=== PATIENT | female | born 1985 | race African-American/Black ===

== ENCOUNTER 2018-03-25 08:39 | Inpatient (IN) | payer OTHER ==
[2018-03-25 10:12] VITALS: BMI 31.4
--- NOTE | 2018-03-25 11:29 | HP ---
Admission [facility] Chief Complaint: PATIENT PRESENTS FOR REHAB SERVICES FOR COCAINE DEPENDENCE. Allergies/Adverse Reactions: Allergies Allergy/AdvReac Type Severity Reaction Status Date / Time milk Allergy Severe diarrhea Verified 10/31/15 14:11 diphenhydramine HCl Allergy twitching Verified 10/31/15 14:11 [From Benadryl] haloperidol [From Haldol] Allergy Verified 03/25/18 10:42 History of Present Illness: PATIENT PRESENT FOR REHAB SERVICES FOR COCAINE DEPENDENCE. [place] [facility] [place] AND REFERRED HERE FOR REHAB SERVICES. PATIENT IS POOR HISTORIAN DUE TO PMH OF SCHIZOPHRENIA. PATIENT STATES SHE SMOKES HEROIN AND DRINKS ALCOHOL OCCASIONALLY. LAST TIME SHE USED BOTH SUBSTANCES 3-4 DAYS AGO. STATES HOW MUCH SHE USES DEPENDS ON FINANCES. PATIENT ALSO SMOKES COCAINE 2 -3 BAGS DAILY. LAST TIME SHE USED WAS 2 DAYS AGO. STATES SHE HAS BEEN SMOKING COCAINE FOR ABOUT 10 YEARS. PMH INCLUDES SEIZURE DISORDER, ASTHMA AND SCHIZOPHRENIA. DENIES SI/HI AND SUICIDE ATTEMPTS. Exam Limitations: Altered Mental Status (PATIENT HAS HISTORY OF DEPRESSION. ALERT BUT POOR HISTORIAN) - Ebola screening Have you traveled outside of the country in the last 21 days: No (N) Have you had contact with anyone from an Ebola affected area: No Have you been sick,other than usual withdrawal symptoms: No Do you have a fever: No - Review of Systems Constitutional: Changes in sleep EENT: reports: No Symptoms Reported Respiratory: reports: No Symptoms reported Cardiac: reports: No Symptoms Reported GI: reports: Poor Fluid Intake : reports: No Symptoms Reported Musculoskeletal: reports: No Symptoms Reported Integumentary: reports: No Symptoms Reported Neuro: reports: Seizure Endocrine: reports: No Symptoms Reported Hematology: reports: Anemia Psychiatric: reports: Depressed, other (+SCHIZOPHRENIA) Patient History - Patient Medical History Hx Anemia: Yes (H/O) Hx Asthma: Yes Hx Chronic Obstructive Pulmonary Disease (COPD): No Hx Cancer: No Hx Cardiac Disorders: No Hx Congestive Heart Failure: No Hx Hypertension: No Hx Hypercholesterolemia: No Hx Pacemaker: No HX Cerebrovascular Accident: No Hx Seizures: Yes (last attack last 2014) Hx Dementia: No Hx Diabetes: No Hx Gastrointestinal Disorders: No Hx Liver Disease: No Hx Genitourinary Disorders: No Hx Sexually Transmitted Disorders: No Hx Renal Disease (ESRD): No Hx Thyroid Disease: Yes (NOT ON MEDS. NOT SURE IF IT IS HYPO/HYPER) Hx Human Immunodeficiency Virus (HIV): No Hx Hepatitis C: No Hx Depression: Yes Hx Suicide Attempt: No Hx Bipolar Disorder: No Hx Schizophrenia: No - Patient Surgical History Past Surgical History: Yes Hx Neurologic Surgery: No Hx Cataract Extraction: No Hx Cardiac Surgery: No Hx Lung Surgery: No Hx Breast Surgery: No Hx Breast Biopsy: No Hx Abdominal Surgery: No Hx Appendectomy: No Hx Cholecystectomy: No Hx Genitourinary Surgery: No Hx Section: No Hx Orthopedic Surgery: Yes (R HIP REPLACEMENT DURING CHILDHOOD) Hx Hysterectomy: No Other Surgical History: CLEFT PALATE REPAIR Anesthesia Reaction: No - PPD History Date: 10/29/15 Results: 0 mm PPD to be Administered?: Yes - Reproductive History Patient is a Female of Child Bearing Age (11 -55 yrs old): Yes Last Menstrual Period: 10/26/15 Patient : No - Smoking Cessation Smoking history: Current every day smoker Have you smoked in the past 12 months: Yes Aproximately how many cigarettes per day: 20 Cigars Per Day: 0 Hx Chewing Tobacco Use: No Initiated information on smoking cessation: Yes 'Breaking Loose' booklet given: 03/25/18 - Substance & Tx. History Hx Alcohol Use: Yes Hx Substance Use: Yes Substance Use Type: Alcohol, Cocaine, Heroin Hx Substance Use Treatment: Yes - Substances Abused Heroin Route: Inhalation Frequency: 1-2 times per week Amount used: 2-3 BAGS Age of first use: 31 Date of Last Use: 03/21/18 Cocaine Route: Inhalation Frequency: 1-2 times per week Amount used: 1 BAG Age of first use: 17 Date of Last Use: 03/23/18 Alcohol Route: Oral Frequency: 1-2 times per week Amount used: 3-4 BEERS Age of first use: 16 Date of Last Use: 03/23/18 Family Disease History - Family Disease History Family History: Unable to Obtain Admission Physical Exam BHS - Vital Signs Vital Signs: Vital Signs - 24 hr 03/25/18 10:10 Temperature 97.4 F L Pulse Rate 102 H Respiratory 19 Rate Blood Pressure 134/77 - Physical General Appearance: Yes: No Apparent Distress HEENTM: Yes: EOMI, Hearing grossly Normal, Normocephalic, Normal Voice, [place], Pharynx Normal Respiratory: Yes: Chest Non-Tender, Lungs Clear, Normal Breath Sounds, No Respiratory Distress, No Accessory Muscle Use Neck: Yes: Within Normal Limits Breast: Yes: Breast Exam Deferred Cardiology: Yes: Regular Rhythm, Regular Rate, S1, S2 Abdominal: Yes: Normal Bowel Sounds, Non Tender, Soft Genitourinary: Yes: Within Normal Limits Back: Yes: Normal Inspection Musculoskeletal: Yes: full range of Motion, Gait Steady Extremities: Yes: Normal Inspection, Normal Range of Motion, Non-Tender Neurological: Yes: design architect II-XII NML intact, Alert, Motor Strength 5/5, Confused ( patient goes from one topic to another and unable to focus during questioning), Depressed Affect Integumentary: Yes: Normal Color, Dry, Warm, Other (healing cigarette burn binu on right hand) Lymphatic: Yes: Within Normal Limits - Diagnostic (1) Opioid abuse Current Visit: Yes Status: Suspected (2) Paranoid schizophrenia Current Visit: Yes Status: Chronic (3) Asthma Current Visit: Yes Status: Chronic Qualifiers: Asthma severity: mild Asthma complication type: uncomplicated Qualified Code(s): J45.20 - Mild intermittent asthma, uncomplicated (4) Cocaine dependence, uncomplicated Current Visit: Yes Status: Acute Cleared for Admission S - Detox or Rehab Claeared for Rehab Admission: Yes [facility] Breath Alcohol Content Breath Alcohol Content: 0 Urine Pregancy Test - Result Urine Test Results: Negative- NO Line Present Urine Drug Screen - Results Drug Screen Negative: No Urine Drug Screen Results: NAINA-Cocaine Inpatient Rehab Admission - Initial Determination Are CD services needed?: Yes Free of communicable disease: Yes Not in need of hospitalization: Yes - Rehab Admission Criteria Previous failed treatment: Yes Poor recovery environment: Yes Comorbidities: Yes Lacks judgement: Yes Patient is meeting Inpatient Rehab admission criteria:: Yes
[2018-03-25] MEDS ORDERED: IBUPROFEN 400 MG TABLET (FP) PO PRN (11:47)
[2018-03-25] MEDS ORDERED: MAGNESIUM HYDROX 2400MG/30ML ORAL SUSPENSION 30 ML CUP PO PRN (11:47)
[2018-03-25] MEDS ORDERED: MAGNESIUM CITRATE 300 ML BOTTLE PO PRN (11:47)
[2018-03-25] MEDS ORDERED: P-EPHED 60MG/TRIPROLIDI 2.5MG TABLET PO PRN (11:47)
[2018-03-25] MEDS ORDERED: MAG HYDROX/AL HYDROX/SIMETH 30 ML UNIT-DOSE CUP PO PRN (11:47)
[2018-03-25] MEDS ORDERED: NICOTINE POLACRILEX 2 MG GUM BUC PRN (11:47)
[2018-03-25] MEDS ORDERED: ACETAMINOPHEN 325 MG TABLET (FP) PO PRN (11:47)
[2018-03-25] MEDS ORDERED: MENTHOL/PHENOL 1 EACH UD MM PRN (11:47)
[2018-03-25] MEDS ORDERED: hydrOXYzine PAMOATE 50 MG CAPSULE (FP) PO PRN (11:47)
[2018-03-25] MEDS ORDERED: LOPERAMIDE HCL 2 MG CAPSULE PO PRN (11:47)
[2018-03-25] MEDS ORDERED: guaiFENesin/D-METHORPHAN HB 10 ML UNIT-DOSE CUPS PO PRN (11:47)
[2018-03-25] MEDS ORDERED: ALBUTEROL SO4 8 GM HFA INHALER IH PRN (11:49)
[2018-03-25 15:05] LABS: ALBUMIN 3.7 g/dl (3.4-5.0); ANION GAP 6 (8-16); BLOOD UREA NITROGEN 13 mg/dL (7-18); CALCIUM 8.8 mg/dL (8.5-10.1); CHLORIDE 110 mmol/L (98-107); CO2 28 mmol/L (21-32); GLUCOSE,RANDOM 77 mg/dL (74-106); POTASSIUM 4.1 mmol/L (3.5-5.1); SODIUM 144 mmol/L (136-145)
[2018-03-25 15:06] LABS: HEMOGLOBIN 11.5 GM/dL (10.7-15.3); MCH 26.7 pg (25.7-33.7); MCHC 33.7 g/dl (32.0-36.0); MEAN CELL VOLUME 79.2 fl (80-96); MEAN PLT VOLUME 9.2 fl (7.5-11.1); PLATELET COUNT 244 K/MM3 (134-434); RDW 13.4 % (11.6-15.6); WHITE BLOOD COUNT 6.7 K/mm3 (4.0-10.0)
[2018-03-25 15:11] LABS: ALK PHOS 98 U/L (45-117); BILIRUBIN,TOTAL 0.4 mg/dL (0.2-1.0); SGOT/AST 17 U/L (15-37); SGPT/ALT 24 U/L (12-78); TOT PROT 7.1 g/dl (6.4-8.2)
[2018-03-25 16:40] LABS: URINE APPEARANCE CLOUDY; URINE BILIRUBIN NEGATIVE (<2.0 mg/dL); URINE COLOR DKYELLOW; URINE GLUCOSE (UA) NEGATIVE (NEGATIVE); URINE KETONE NEGATIVE (NEGATIVE); URINE NITRITE POSITIVE (NEGATIVE)
[2018-03-25 16:45] LABS: URINE LEUK ESTERASE 3+ (NEGATIVE); URINE PROTEIN 1+ (NEGATIVE)
[2018-03-25 16:47] LABS: CALCIUM OXALATE CRYSTALS FEW /hpf (NONE SEEN); EPI CELLS RARE /HPF (FEW); URINE BACTERIA RARE /hpf (NONE SEEN)
--- NOTE | 2018-03-25 18:13 | EKG ---
Test Reason : Blood Pressure : / mmHG Vent. Rate : 068 BPM Atrial Rate : 068 BPM P-R Int : 118 ms QRS Dur : 074 ms QT Int : 360 ms P-R-T Axes : 046 052 006 degrees QTc Int : 382 ms NORMAL SINUS RHYTHM WITH SINUS ARRHYTHMIA NONSPECIFIC T WAVE ABNORMALITY ABNORMAL ECG NO PREVIOUS ECGS AVAILABLE Confirmed by JOSUÉ STOKES, LAURITA ([id number]) on 03/25/2018 6:12:54 PM Referred By: Confirmed By:LAURITA MOSES MD
--- NOTE | 2018-03-25 20:08 | PN ---
[facility] Progress Note Note: Psychiatric nurse practitioner conference director note: Call received by RN requesting patient's medication of depakote, prozac and cogentin. Chart review. Will order depakote 500mg BID + Prozac 10mg daily. Valproic acid level ordered for the morning of 03/25/18. Cogentin held at this time. No clinical indication for cogentin at this time.
[2018-03-25] MEDS: DIVALPROEX SODIUM 500 MG TABLET E.C. PO SCH (22:00)
[2018-03-25] MEDS: THIAMINE HCL 100 MG TABLET (FP) PO SCH (22:00)
[2018-03-25] MEDS: BACITRACIN 0.9 GM PACKET TP SCH (22:00)
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
[2018-03-26] MEDS: FLUoxetine HCL 10 MG CAPSULE (FP) PO SCH (10:07)
[2018-03-26] MEDS: DIVALPROEX SODIUM 500 MG TABLET E.C. PO SCH ×2 (10:07→22:04)
[2018-03-26] MEDS: BACITRACIN 0.9 GM PACKET TP SCH ×2 (10:07→22:04)
[2018-03-26] MEDS: PRENATAL VITAMINS W/ FOLIC ACID TABLET (FP) PO SCH (10:08)
[2018-03-26] MEDS: NICOTINE 21 MG/24 HOURS TOPICAL PATCH TD SCH (10:09)
[2018-03-26] MEDS: hydrOXYzine PAMOATE 50 MG CAPSULE (FP) PO PRN (16:59)
[2018-03-26] MEDS: THIAMINE HCL 100 MG TABLET (FP) PO SCH (22:04)
[2018-03-27] MEDS: NICOTINE 21 MG/24 HOURS TOPICAL PATCH TD SCH (09:59)
[2018-03-27] MEDS: hydrOXYzine PAMOATE 50 MG CAPSULE (FP) PO PRN ×2 (09:59→20:00)
[2018-03-27] MEDS: PRENATAL VITAMINS W/ FOLIC ACID TABLET (FP) PO SCH (09:59)
[2018-03-27] MEDS: BACITRACIN 0.9 GM PACKET TP SCH ×2 (09:59→21:21)
[2018-03-27] MEDS: DIVALPROEX SODIUM 500 MG TABLET E.C. PO SCH ×2 (09:59→21:21)
[2018-03-27] MEDS: FLUoxetine HCL 10 MG CAPSULE (FP) PO SCH (09:59)
[2018-03-27] MEDS: THIAMINE HCL 100 MG TABLET (FP) PO SCH (21:21)
[2018-03-28] MEDS: BACITRACIN 0.9 GM PACKET TP SCH ×2 (10:12→21:52)
[2018-03-28] MEDS: NICOTINE 21 MG/24 HOURS TOPICAL PATCH TD SCH (10:12)
[2018-03-28] MEDS: PRENATAL VITAMINS W/ FOLIC ACID TABLET (FP) PO SCH (10:12)
[2018-03-28] MEDS: FLUoxetine HCL 10 MG CAPSULE (FP) PO SCH (10:12)
[2018-03-28] MEDS: DIVALPROEX SODIUM 500 MG TABLET E.C. PO SCH ×2 (10:12→21:52)
[2018-03-28] MEDS: hydrOXYzine PAMOATE 50 MG CAPSULE (FP) PO PRN (10:13)
[2018-03-28] MEDS ORDERED: PT OWN MED DRAWER 7, Y5N ONE (20:53)
[2018-03-28] MEDS: THIAMINE HCL 100 MG TABLET (FP) PO SCH (21:52)
[2018-03-29] MEDS: FLUoxetine HCL 10 MG CAPSULE (FP) PO SCH (10:17)
[2018-03-29] MEDS: DIVALPROEX SODIUM 500 MG TABLET E.C. PO SCH ×2 (10:17→21:11)
[2018-03-29] MEDS: BACITRACIN 0.9 GM PACKET TP SCH ×2 (10:17→21:10)
[2018-03-29] MEDS: PRENATAL VITAMINS W/ FOLIC ACID TABLET (FP) PO SCH (10:17)
[2018-03-29] MEDS: NICOTINE 21 MG/24 HOURS TOPICAL PATCH TD SCH (10:17)
[2018-03-29] MEDS ORDERED: PT OWN MED DRAWER 7, Y5N ONE ×2 (11:20→13:51)
[2018-03-29] MEDS: THIAMINE HCL 100 MG TABLET (FP) PO SCH (21:11)
[2018-03-30] MEDS: FLUoxetine HCL 10 MG CAPSULE (FP) PO SCH (10:00)
[2018-03-30] MEDS: BACITRACIN 0.9 GM PACKET TP SCH ×2 (10:00→22:02)
[2018-03-30] MEDS: DIVALPROEX SODIUM 500 MG TABLET E.C. PO SCH ×2 (10:00→22:02)
[2018-03-30] MEDS: PRENATAL VITAMINS W/ FOLIC ACID TABLET (FP) PO SCH (10:00)
[2018-03-30] MEDS: NICOTINE 21 MG/24 HOURS TOPICAL PATCH TD SCH (10:01)
[2018-03-30] MEDS: THIAMINE HCL 100 MG TABLET (FP) PO SCH (22:02)
[2018-03-30] MEDS: hydrOXYzine PAMOATE 50 MG CAPSULE (FP) PO PRN (22:03)
[2018-03-31] MEDS: PRENATAL VITAMINS W/ FOLIC ACID TABLET (FP) PO SCH (09:56)
[2018-03-31] MEDS: BACITRACIN 0.9 GM PACKET TP SCH ×2 (09:56→21:52)
[2018-03-31] MEDS: FLUoxetine HCL 10 MG CAPSULE (FP) PO SCH (09:56)
[2018-03-31] MEDS: DIVALPROEX SODIUM 500 MG TABLET E.C. PO SCH ×2 (09:56→21:52)
[2018-03-31] MEDS: NICOTINE 21 MG/24 HOURS TOPICAL PATCH TD SCH (09:57)
[2018-03-31] MEDS: THIAMINE HCL 100 MG TABLET (FP) PO SCH (21:52)
[2018-04-01] MEDS: BACITRACIN 0.9 GM PACKET TP SCH ×2 (09:43→21:22)
[2018-04-01] MEDS: DIVALPROEX SODIUM 500 MG TABLET E.C. PO SCH ×2 (09:44→21:22)
[2018-04-01] MEDS: FLUoxetine HCL 10 MG CAPSULE (FP) PO SCH (09:44)
[2018-04-01] MEDS: NICOTINE 21 MG/24 HOURS TOPICAL PATCH TD SCH (09:44)
[2018-04-01] MEDS: PRENATAL VITAMINS W/ FOLIC ACID TABLET (FP) PO SCH (09:44)
[2018-04-01] MEDS: THIAMINE HCL 100 MG TABLET (FP) PO SCH (21:22)
[2018-04-02] MEDS: BACITRACIN 0.9 GM PACKET TP SCH ×2 (09:56→21:55)
[2018-04-02] MEDS: PRENATAL VITAMINS W/ FOLIC ACID TABLET (FP) PO SCH (09:56)
[2018-04-02] MEDS: NICOTINE 21 MG/24 HOURS TOPICAL PATCH TD SCH (09:56)
[2018-04-02] MEDS: DIVALPROEX SODIUM 500 MG TABLET E.C. PO SCH ×2 (09:56→21:55)
[2018-04-02] MEDS: FLUoxetine HCL 10 MG CAPSULE (FP) PO SCH (09:56)
[2018-04-02] MEDS: THIAMINE HCL 100 MG TABLET (FP) PO SCH (22:45)
[2018-04-03] MEDS: FLUoxetine HCL 10 MG CAPSULE (FP) PO SCH (09:45)
[2018-04-03] MEDS: PRENATAL VITAMINS W/ FOLIC ACID TABLET (FP) PO SCH (09:45)
[2018-04-03] MEDS: BACITRACIN 0.9 GM PACKET TP SCH ×2 (09:45→21:25)
[2018-04-03] MEDS: DIVALPROEX SODIUM 500 MG TABLET E.C. PO SCH ×2 (09:45→21:25)
[2018-04-03] MEDS: NICOTINE 21 MG/24 HOURS TOPICAL PATCH TD SCH (09:46)
[2018-04-03] MEDS: THIAMINE HCL 100 MG TABLET (FP) PO SCH (21:25)
[2018-04-04] MEDS: BACITRACIN 0.9 GM PACKET TP SCH ×2 (09:40→21:07)
[2018-04-04] MEDS: PRENATAL VITAMINS W/ FOLIC ACID TABLET (FP) PO SCH (09:40)
[2018-04-04] MEDS: DIVALPROEX SODIUM 500 MG TABLET E.C. PO SCH ×2 (09:40→21:07)
[2018-04-04] MEDS: NICOTINE 21 MG/24 HOURS TOPICAL PATCH TD SCH (09:41)
[2018-04-04] MEDS: FLUoxetine HCL 10 MG CAPSULE (FP) PO SCH (09:41)
[2018-04-04] MEDS: THIAMINE HCL 100 MG TABLET (FP) PO SCH (21:07)
[2018-04-05] MEDS: PRENATAL VITAMINS W/ FOLIC ACID TABLET (FP) PO SCH (09:51)
[2018-04-05] MEDS: FLUoxetine HCL 10 MG CAPSULE (FP) PO SCH (09:51)
[2018-04-05] MEDS: BACITRACIN 0.9 GM PACKET TP SCH ×2 (09:51→22:27)
[2018-04-05] MEDS: DIVALPROEX SODIUM 500 MG TABLET E.C. PO SCH ×2 (09:51→21:31)
[2018-04-05] MEDS: NICOTINE 21 MG/24 HOURS TOPICAL PATCH TD SCH (09:52)
[2018-04-05] MEDS: THIAMINE HCL 100 MG TABLET (FP) PO SCH (21:31)
[2018-04-06] MEDS: FLUoxetine HCL 10 MG CAPSULE (FP) PO SCH (09:28)
[2018-04-06] MEDS: DIVALPROEX SODIUM 500 MG TABLET E.C. PO SCH ×2 (09:28→21:33)
[2018-04-06] MEDS: NICOTINE 21 MG/24 HOURS TOPICAL PATCH TD SCH (09:28)
[2018-04-06] MEDS: PRENATAL VITAMINS W/ FOLIC ACID TABLET (FP) PO SCH (09:28)
[2018-04-06] MEDS: BACITRACIN 0.9 GM PACKET TP SCH ×2 (09:28→21:33)
[2018-04-06] MEDS: THIAMINE HCL 100 MG TABLET (FP) PO SCH (21:33)
[2018-04-07] MEDS ORDERED: PT OWN MED DRAWER 7, Y5N ONE (08:43)
[2018-04-07] MEDS: FLUoxetine HCL 10 MG CAPSULE (FP) PO SCH (09:23)
[2018-04-07] MEDS: BACITRACIN 0.9 GM PACKET TP SCH ×2 (09:23→22:38)
[2018-04-07] MEDS: PRENATAL VITAMINS W/ FOLIC ACID TABLET (FP) PO SCH (09:23)
[2018-04-07] MEDS: DIVALPROEX SODIUM 500 MG TABLET E.C. PO SCH ×2 (09:24→21:37)
[2018-04-07] MEDS: NICOTINE 21 MG/24 HOURS TOPICAL PATCH TD SCH (09:24)
[2018-04-07] MEDS: MELATONIN 5 MG TABLETS PO PRN (21:37)
[2018-04-07] MEDS: THIAMINE HCL 100 MG TABLET (FP) PO SCH (22:38)
[2018-04-08 06:54] VITALS: TEMP 98.3
[2018-04-08] MEDS: NICOTINE 21 MG/24 HOURS TOPICAL PATCH TD SCH (09:53)
[2018-04-08] MEDS: PRENATAL VITAMINS W/ FOLIC ACID TABLET (FP) PO SCH (09:53)
[2018-04-08] MEDS: DIVALPROEX SODIUM 500 MG TABLET E.C. PO SCH ×2 (09:53→21:26)
[2018-04-08] MEDS: BACITRACIN 0.9 GM PACKET TP SCH ×2 (09:53→21:26)
[2018-04-08] MEDS: FLUoxetine HCL 10 MG CAPSULE (FP) PO SCH (09:53)
[2018-04-08] MEDS: THIAMINE HCL 100 MG TABLET (FP) PO SCH (21:26)
[2018-04-08] MEDS: MELATONIN 5 MG TABLETS PO PRN (21:27)
[2018-04-09] MEDS: FLUoxetine HCL 10 MG CAPSULE (FP) PO SCH (09:51)
[2018-04-09] MEDS: PRENATAL VITAMINS W/ FOLIC ACID TABLET (FP) PO SCH (09:51)
[2018-04-09] MEDS: DIVALPROEX SODIUM 500 MG TABLET E.C. PO SCH ×2 (09:51→21:21)
[2018-04-09] MEDS: BACITRACIN 0.9 GM PACKET TP SCH ×2 (09:51→21:22)
[2018-04-09] MEDS: NICOTINE 21 MG/24 HOURS TOPICAL PATCH TD SCH (09:52)
[2018-04-09] MEDS: THIAMINE HCL 100 MG TABLET (FP) PO SCH (21:22)
[2018-04-10 07:04] VITALS: BP 151/95; PULSE 77
--- NOTE | 2018-04-10 08:20 | PN ---
Psychiatric Progress Note Vital Signs: Vital Signs Period Temp Pulse Resp BP Sys/Alonso Pulse Ox Last 24 Hr 98.3 F 77 18-18 151/95 Date of Session: 04/10/18 Chief Complaint:: "Discharge" HPI: Pt. was admitted to [facility] for history of cocaine dependence. ROS: Significant for bronchial asthma, anemia, seizure disorder, thyroid condition and history of surgeries(right hip replacement, cleft palate). Current Medications: Active Medications Generic Name Dose Route Start Last Admin Trade Name Freq PRN Reason Stop Dose Admin Acetaminophen 650 mg 03/25/18 11:47 Tylenol - PO Q4H PRN FEVER Al Hydroxide/Mg Hydroxide 30 ml 03/25/18 11:47 Mylanta Oral Suspension - PO Q6H PRN DYSPEPSIA Albuterol Sulfate 2 puff 03/25/18 11:49 Ventolin Hfa Inhaler - IH Q4H PRN ASTHMA Bacitracin 0.9 gm 03/25/18 22:00 04/09/18 21:22 Bacitracin - TP 0.9 gm BID FRANKO Administration Divalproex Sodium 500 mg 03/25/18 22:00 04/09/18 21:21 Depakote - PO 500 mg BID FRANKO Administration Eucalyptus/Menthol/Phenol/Sorbitol 1 each 03/25/18 11:47 Cepastat Lozenge - MM Q4H PRN SORE THROAT Fluoxetine HCl 10 mg 03/26/18 10:00 04/09/18 09:51 Prozac - PO 10 mg DAILY FRANKO Administration Guaifenesin 10 ml 03/25/18 11:47 Robitussin Dm - PO Q6H PRN COUGH Hydroxyzine Pamoate 50 mg 03/26/18 16:43 03/30/18 22:03 Vistaril - PO 50 mg Q4H PRN Administration ANXIETY Ibuprofen 400 mg 03/25/18 11:47 Motrin - PO Q6H PRN Pain level 4-6 Loperamide HCl 4 mg 03/25/18 11:47 Imodium - PO Q6H PRN DIARRHEA Magnesium Citrate 300 ml 03/25/18 11:47 Citroma - PO Q48H PRN CONSTIPATION Magnesium Hydroxide 30 ml 03/25/18 11:47 Milk Of Magnesia - PO DAILY PRN CONSTIPATION Melatonin 5 mg 03/25/18 22:00 04/08/18 21:27 Melatonin PO 5 mg HS PRN Administration INSOMNIA Nicotine 21 mg 03/26/18 10:00 04/09/18 09:52 Nicoderm Patch - TD Not Given DAILY FRANKO Nicotine Polacrilex 2 mg 03/25/18 11:47 Nicorette Gum - BUC Q2H PRN NICOTINE REPLACEMENT RX Multivit/Folic Acid/Iron 1 tab 03/26/18 10:00 04/09/18 09:51 Vitamins (Sjr) - PO 1 tab DAILY FRANKO Administration Pseudoephedrine/Triprolidine 1 combo 03/25/18 11:47 Actifed - PO TID PRN NASAL CONGESTION Thiamine HCl 100 mg 03/25/18 22:00 04/09/18 21:22 Vitamin B1 - PO 100 mg HS FRANKO Administration Medication(s) Change(s): No. Current Side Effect: No Lab tests ordered: No Lab tests reviewed: Yes Provider note:: Patient able to complete the rehabilitation program on 04/10/18. She has met her treatment goals and is able to identify behaviors that contribute to relapsing. Through participation of this program patient has learned the importance of changing her behaviors and the need for more structure in her life. Pt. responsed well to depakote 500mg BID + Prozac 10mg. Due to having a month supply of psychotropic medications at home patient reports not needing additional medication. Pt will continue to address her issues at the [facility] in [place], [place]. Pt. is stable for discharge on 04/10/18. Total face to face time:: 35 Mental Status Exam - Mental Status Exam Alert and Oriented to: Time, Place, Person Cognitive Function: Good Patient Appearance: Well Groomed Mood: Hopeful Affect: Mood Congruent Patient Behavior: Appropriate, Cooperative Speech Pattern: Clear Voice Loudness: Normal Thought Process: Intact, Goal Oriented Thought Disorder: Not Present Hallucinations: Denies Suicidal Ideation: Denies Homicidal Ideation: Denies Insight/Judgement: Good Sleep: Well Appetite: Good Muscle strength/Tone: Normal Gait/Station: Normal Psychiatric Treatment Plan - Problem List (1) Alcohol dependence Current Visit: Yes (2) Cocaine dependence Current Visit: Yes (3) Opioid dependence Current Visit: Yes (4) Nicotine dependence Current Visit: Yes (5) Schizoaffective disorder Current Visit: Yes
[2018-04-10] MEDS: PRENATAL VITAMINS W/ FOLIC ACID TABLET (FP) PO SCH (09:39)
[2018-04-10] MEDS: BACITRACIN 0.9 GM PACKET TP SCH (09:39)
[2018-04-10] MEDS: FLUoxetine HCL 10 MG CAPSULE (FP) PO SCH (09:39)
[2018-04-10] MEDS: DIVALPROEX SODIUM 500 MG TABLET E.C. PO SCH (09:39)
[2018-04-10] MEDS: NICOTINE 21 MG/24 HOURS TOPICAL PATCH TD SCH (09:40)
== END 2018-04-10 14:50 | disposition home or self-care (01) | DRG 772 ==
LOC: YASAS 08:39 → Y3W 12:11
PROVIDERS: ADMIT Psychiatry & Neurology Psychiatry; ATTEND Psychiatry & Neurology Psychiatry
PROC: HZ42ZZZ Group Counseling for Substance Abuse Treatment, Cognitive-Behavioral (ICD-10-PCS; principal; 2018-03-25)
DX: F11.20 Opioid dependence, uncomplicated (principal); F10.20 Alcohol dependence, uncomplicated; F14.20 Cocaine dependence, uncomplicated; F17.210 Nicotine dependence, cigarettes, uncomplicated; F25.9 Schizoaffective disorder, unspecified; F20.0 Paranoid schizophrenia; J45.20 Mild intermittent asthma, uncomplicated; Z86.69 Personal history of other diseases of the nervous system and sense organs; Z91.011 Allergy to milk products
CPT/HCPCS: 36415; 80053; 81003; 81015; 85027; 86593; 87389; 93005; 93010